=== PATIENT | male | born 1975 | race Caucasian/White ===

== ENCOUNTER 2017-08-08 11:56 | Outpatient (CLI) | payer BC | END 2017-08-08 22:19 | disposition home or self-care (01) | LOC: SCA 11:56 | DX: I10 Essential (primary) hypertension (principal) | CPT/HCPCS: 93005 ==

== ENCOUNTER 2017-08-24 16:08 | Outpatient (CLI) | payer BC | END 2017-08-24 19:16 | disposition home or self-care (01) | LOC: SCA 16:08 | DX: I10 Essential (primary) hypertension (principal) | CPT/HCPCS: 93005 ==